=== PATIENT | female | born 1955 | race Caucasian/White ===

== ENCOUNTER → 2017-04-02 | Outpatient (CLI) | payer OTHER ==
[~2017-04-02] MED LIST: ASPIR-TRIN325 M1 PO; COUMADIN,JANTOVE5 MG PO; LOPRESSOR25 MG PO; LOVENOX150 MG/1 M SC; PLETAL50 MG PO; Tylenol Extra Streng PO; Zestril,Prinivil PO; Zocor PO
== END | disposition home or self-care (01) ==
LOC: AMB 07:56
DX: I83.892 Varicose veins of left lower extremity with other complications (principal); L98.9 Disorder of the skin and subcutaneous tissue, unspecified